=== PATIENT | male | born 1995 | race Caucasian/White ===

== ENCOUNTER 2018-11-19 07:27 | Emergency (ER) | payer SELFPAY ==
[~2018-11-19] VITALS: Ht 172.7 cm; Wt 80.8 kg
[~2018-11-19 07:27] MED LIST: ACET325T33 PO; CEPH-443 PO; LACT1CAP57 PO
[2018-11-19 07:31] VITALS: BP 120/63; PULSE 56; RESP 18; Ht 172.7 cm; Wt 80.8 kg
[2018-11-19] MEDS ORDERED: DIPHTH/TET/ACEL PERTUSS (ADULT) 0.5 ML VIAL IM* ONE (08:00)
--- NOTE | 2018-11-19 08:31 | ERD ---
ER Documentation Chief Complaint Chief Complaint laceration left hand base of thumb last night HPI 23-year-old male presented to ED for a laceration in the web space between his index and thumb on the left hand. 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 Patient states he does not remember when his last tetanus vaccination is. Patient attempted to glue the open wound at home and is presenting to the ED to see if we can better secure the laceration on his hand. Patient denies any allergies to medication denies IV drug use states that he is not currently on any medication and has no past medical history. Patient states the pain is only mild is a 3 out of 10 and that he has full function in his hand and denies any numbness and tingling in the hand ROS All systems reviewed and are negative except as per history of present illness. Medications Home Meds Active Scripts Lactobacillus Rhamnosus* (Culturelle*) 1 Each Cap.sprink, 1 CAP PO DAILY for 30 Days, CAP Prov:SONIYA VEE PA-C 11/19/18 Acetaminophen* (Tylenol*) 325 Mg Tablet, 1 TAB PO Q6 PRN for PAIN AND OR ELEVATED TEMP, #20 TAB Prov:SONIYA VEE PA-C 11/19/18 Cephalexin* (Keflex*) 500 Mg Capsule, 500 MG PO QID for 5 Days, CAP Prov:SONIYA VEE PA-C 11/19/18 Allergies Allergies: Coded Allergies: No Known Allergy (Unverified , 11/19/18) PMhx/Soc Medical and Surgical Hx: pt denies Medical Hx, pt denies Surgical Hx Hx Alcohol Use: Yes (occasional) Hx Substance Use: Yes (marijuana) Hx Tobacco Use: No Smoking Status: Never smoker FmHx Family History: No diabetes, No coronary disease, No other Physical Exam Vitals Vital Signs Date Temp Pulse Resp B/P (MAP) Pulse Ox O2 O2 Flow FiO2 Time Delivery Rate 11/19/18 98.0 56 18 120/63 99 07:31 (82) Physical Exam GENERAL: Mild distress CHEST: Clear to auscultation bilaterally. There are no rales, wheezes or rhonchi. HEART: Regular rate and rhythm. No murmurs, clicks, rubs or gallops. EXTREMITIES: Approximately 1 cm laceration in the webspace between his thumb and index finger on the left hand. The wound appears to be closed with glue. The patient has good pulse motor sensation extremity there is no fluctuant masses or discharge from the wound. The patient has no numbness and tingling in the palmar aspect of his hand and no numbness and tingling in any of the anterior aspects of aches digits. The patient has good sensation on the posterior aspect of his hand and posterior aspect of all 5 digits. Patient has good range of motion and there is no pain with passive or active movement in the extremity Results 24 hrs Current Medications Medications Dose Sig/Benny Start Time Status Last (Trade) Ordered Route PRN Stop Time Admin Dose Reason Admin Diphtheria/ 0.5 ml ONCE ONCE 11/19/18 DC 11/19/18 Tetanus/Acell IM* 08:00 07:55 Pertussis 11/19/18 08:01 (Adacel) Procedures/MDM ED course: The patient was stable throughout the ED course. The patient and/or family informed of laboratory and diagnostic imaging results throughout the ED course. Procedures: LACERATION: The patient was verbally consented prior to procedure. Patient was explained the risks, benefits and alternatives to this procedure. Location: Left hand webspace between first and second digit Length: 1 cm Inspection: There is dried glue on the laceration from the patient trying to re pair himself at home. The glue was removed and the wound was thoroughly irrigated. Repair: The area was prepared and draped in the usual sterile manner with the wound exposed. The wound was adhered with Dermabond were placed with good wound closure and wound approximation. Bleeding was minimal. The patient tolerated the procedure well with no complications. The wound was dressed with bacitracin and sterile gauze. The patient was neurovascularly intact post-procedure. Post- procedural wound care was discussed with the patient. The patient was advised that if they develop fever, chills, discharge or discomfort to return to the ER immediately. I discussed with the patient the importance of having a wound check in 2 days and the importance of having the sutures removed within the appropriate time. Medications given in ER: Tdap Patient tolerated medication well with no adverse reactions. Medical decision making: Patient is 23-year-old male presented to ED for a laceration on his left hand that he attempted repair last night on his own. The patient has good pulse motor sensation extremity he denies any numbness and tingling in the anterior aspect of his hand or posterior aspect of his hand he has good motor sensation in the extremity. The patient attempted to glue the wound himself at home. The glue was removed the wound was thoroughly irrigated and cleaned. The wound appears to be very superficial and only extends into the superficial aspect of the dermis. There is no signs of foreign body retention. The wound was repaired with Dermabond. A neurovascular check was done post repair and no deficits were noted. The hand was dressed and bandaged up prior to discharge. At this time I have low suspicion for compartment syndrome, neurovascular injury, fracture, dislocation. I want to put the patient on Keflex because he attempted to close the wound on his own last night. The patient was given a Tdap vaccination in the ED and tolerated it well. Advised the patient he needs to return in 2 days for wound check. Advised the patient that he needs to keep an eye on this and that if he experiences any worsening pain drainage from the wound unable to move his hand that he needs to return as soon as possible to the ED. The patient understands the treatment plan is in agreement to the treatment plan all questions were answered upon discharge. The patient also plans to follow-up with his primary care provider this week regarding this incident. Prescription for home: Keflex Acetaminophen Probiotic I have discussed with the patient proper use and common side effects to expert with the medication . I advised the patient/family to speak with the pharmacist dispensing the medication to be advised of any potential drug interactions with other medication or supplements they may be taking. Discharge: At this time, patient is stable for discharge and outpatient management. I have instructed the patient to follow-up with his\her primary care physician in 1 to 2 days. I have discussed with the patient the possibility of needing to see a specialist for further work-up and imaging studies if symptoms persist. I have instructed the patient to promptly return to the ER for any new or worsening symptoms including increased pain, fever, nausea, vomiting, weakness or LOC. The patient and\or family expressed understanding of and agreement with this plan. All questions were answered. Home care instructions were provided. Disclaimer: Inadvertent spelling and grammatical errors are likely due to EHR\dictation software use and do not reflect on the overall quality of patient care. Also, please note that the electronic time recorded on the note does not necessarily reflect the actual time of the patient encounter. Departure Diagnosis: Primary Impression: Laceration Condition: Stable Patient Instructions: Laceration, All Referrals: [facility] YOU HAVE RECEIVED A MEDICAL SCREENING EXAM AND THE RESULTS INDICATE THAT YOU DO NOT HAVE A CONDITION THAT REQUIRES URGENT TREATMENT IN THE EMERGENCY DEPARTMENT. FURTHER EVALUATION AND TREATMENT OF YOUR CONDITION CAN WAIT UNTIL YOU ARE SEEN IN YOUR DOCTORS OFFICE WITHIN THE NEXT 1-2 DAYS. IT IS YOUR RESPONSIBILITY TO MAKE AN APPOINTMENT FOR FOLOW-UP CARE. IF YOU HAVE A PRIMARY DOCTOR --you should call your primary doctor and schedule an appointment IF YOU DO NOT HAVE A PRIMARY DOCTOR YOU CAN CALL OUR PHYSICIAN REFERRAL HOTLINE AT IF YOU CAN NOT AFFORD TO SEE A PHYSICIAN YOU CAN CHOSE FROM THE FOLLOWING [facility] [address] [facility] [address] [facility] [facility] [address] [facility] [address] [facility] [address] [facility] [facility] [address] [facility]. [facility] YOU HAVE RECEIVED A MEDICAL SCREENING EXAM AND THE RESULTS INDICATE THAT YOU DO NOT HAVE A CONDITION THAT REQUIRES URGENT TREATMENT IN THE EMERGENCY DEPARTMENT. FURTHER EVALUATION AND TREATMENT OF YOUR CONDITION CAN WAIT UNTIL YOU ARE SEEN IN YOUR DOCTORS OFFICE WITHIN THE NEXT 1-2 DAYS. IT IS YOUR RESPONSIBILITY TO MAKE AN APPOINTMENT FOR FOLOW-UP CARE. IF YOU HAVE A PRIMARY DOCTOR --you should call your primary doctor and schedule and appointment IF YOU DO NOT HAVE A PRIMARY DOCTOR YOU CAN CALL OUR PHYSICIAN REFERRAL HOTLINE AT . IF YOU CAN NOT AFFORD TO SEE A PHYSICIAN YOU CAN CHOSE FROM THE FOLLOWING [facility] INSTITUTIONS: [facility] [address] [place] [address] [facility] [address] [place] [address] [facility] + [facility] [address] [place] [address] [facility] Additional Instructions: Call your primary care doctor TOMORROW for an appointment during the next 1-2 days.See the doctor sooner or return here if your condition worsens before your appointment time. Follow up in 2 days in your clinic for wound check. SONIYA VEE PA-C Nov 19, 2018 08:31
== END 2018-11-19 08:40 | disposition home or self-care (01) ==
LOC: FTE 07:27
DX: S61.412A Laceration without foreign body of left hand, initial encounter (principal); W26.8XXA Contact with other sharp object(s), not elsewhere classified, initial encounter; Y92.89 Other specified places as the place of occurrence of the external cause; Z23 Encounter for immunization
CPT/HCPCS: 90471; 90715